=== PATIENT | female | born 2000 | race Caucasian/White ===

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

== ENCOUNTER 2021-09-25 03:10 | Emergency (ER) | payer BC ==
[2021-09-25 06:44] LABS: HEMOGLOBIN 13.7 gm/dl (12.3-15.3); RED BLOOD COUNT 4.97 M/UL (4.00-5.10); WHITE BLOOD COUNT 9.2 K/UL (4.5-11.0)
[2021-09-25 07:05] LABS: BUN/CREATININE RATIO 19 (0-10)
[2021-09-25] MEDS ORDERED: PHENERGAN 25 MG25 M1 PO (07:49)
[2021-09-25] MEDS ORDERED: NAPROSYN500 MG PO (07:49)
== END 2021-09-25 07:47 | disposition home or self-care (01) ==
LOC: ER1 03:10
PROVIDERS: Physician Assistant
DX: R07.89 Other chest pain (principal); R11.2 Nausea with vomiting, unspecified
CPT/HCPCS: 71045; 80053; 82550; 82553; 83874; 84484; 85025; 85379; 93005; 99285